=== PATIENT | male | born 1935 | race Caucasian/White ===

== ENCOUNTER → 2024-05-09 09:22 | Outpatient (REF) | payer OTHER, SELFPAY ==
[2024-05-09 10:42] LABS: Blood Urea Nitrogen 26 mg/dl (9-20)
== END ==
LOC: RAD 09:22
PROVIDERS: ATTENDING PHYSICIAN Family Medicine
DX: I77.810 Thoracic aortic ectasia (principal); Z87.898 Personal history of other specified conditions
CPT/HCPCS: 36415; 71275; 82565; 84520; Q9967

== ENCOUNTER → 2024-08-10 07:33 | Outpatient (REF) | payer OTHER, SELFPAY | LOC: RAD 07:33 | PROVIDERS: ATTENDING PHYSICIAN Family Medicine | DX: I65.22 Occlusion and stenosis of left carotid artery (principal) | CPT/HCPCS: 93880 ==